=== PATIENT | female | born 1970 | race Caucasian/White ===

== ENCOUNTER 2021-03-31 17:37 | Emergency (ER) | payer OTHER ==
[2021-03-31 17:57] VITALS: BP 178/96; PULSE 74; RESP 20; TEMP 98.2
--- NOTE | 2021-03-31 18:06 | ED ---
General Adult HPI - General Chief complaint: Recheck/Abnormal Lab/Rx Stated complaint: covid test Time Seen by Provider: 03/31/21 18:00 Source: patient, family, RN notes reviewed Mode of arrival: ambulatory Limitations: no limitations - History of Present Illness Initial comments: Well-appearing 51-year-old female patient presents to the emergency room with her requesting a Covid test to go to [place] to see her son. She denies any sick contacts, sore throat, cough or fever. Severity scale (1-10): 0 Associated Symptoms: denies other symptoms - Related Data Allergies Allergy/AdvReac Type Severity Reaction Status Date / Time No Known Allergies Allergy Verified 03/31/21 17:48 Review of Systems ROS Statement: Those systems with pertinent positive or pertinent negative responses have been documented in the HPI. ROS Other: All systems not noted in ROS Statement are negative. Past Medical History Past Medical History: No Reported History History of Any Multi-Drug Resistant Organisms: None Reported Additional Past Surgical History / Comment(s): Lump biopsy Past Psychological History: No Psychological Hx Reported Smoking Status: Never smoker Past Alcohol Use History: Occasional Past Drug Use History: None Reported General Exam Limitations: no limitations General appearance: alert, in no apparent distress Head exam: Present: atraumatic, normocephalic, normal inspection Eye exam: Present: normal appearance, PERRL, EOMI. Absent: scleral icterus, conjunctival injection, periorbital swelling ENT exam: Present: normal exam, normal oropharynx, mucous membranes moist Neck exam: Present: normal inspection, full ROM. Absent: tenderness, meningismus, lymphadenopathy Respiratory exam: Present: normal lung sounds bilaterally. Absent: respiratory distress, wheezes, rales, rhonchi, stridor Cardiovascular Exam: Present: regular rate, normal rhythm, normal heart sounds. Absent: systolic murmur, diastolic murmur, rubs, gallop, clicks Back exam: Absent: tenderness Neurological exam: Present: alert, oriented X3, normal gait Psychiatric exam: Present: normal affect, normal mood Skin exam: Present: warm, dry, intact, normal color. Absent: rash, cyanosis, diaphoretic Course Vital Signs 03/31/21 17:46 Temperature 98.2 F Pulse Rate 74 Respiratory 20 Rate Blood Pressure 178/96 O2 Sat by Pulse 99 Oximetry Medical Decision Making - Medical Decision Making This is a well-appearing female patient with no sick exposures, no fevers no cough no sore throat. Here for Covid test to see her son in [place]. Covid test is negative today. She was advised that her blood pressure is elevated and to discuss with her primary care doctor. - Lab Data Lab Results 03/31/21 Range/Units 17:51 Coronavirus (PCR) Not Detected (Not Detectd) Disposition Clinical Impression: Well adult exam Disposition: HOME SELF-CARE Condition: Good Additional Instructions: Your Covid test is negative today. Your blood pressure was elevated at this visit please discuss hypertension with your primary care doctor. One elevated reading does not indicate hypertension. Is patient prescribed a controlled substance at d/c from ED?: No Referrals: None,Stated [Primary Care Provider] - 1-2 days Time of Disposition: 18:31
== END 2021-03-31 18:39 | disposition home or self-care (01) ==
LOC: EC 17:37
DX: Z00.00 Encounter for general adult medical examination without abnormal findings (principal); Z20.822 Contact with and (suspected) exposure to COVID-19
CPT/HCPCS: 87635; 99282